=== PATIENT | female | born 1945 | race Caucasian/White ===

== ENCOUNTER 2017-12-08 15:28 | Outpatient (CLI) | payer MEDICARE ==
--- NOTE | 2017-12-08 16:38 | MRI ---
MRI OF BRAIN WITHOUT CONTRAST 12/08/17 HISTORY: Expressive aphasia, migraine. FINDINGS: No restricted diffusion is seen. There are multiple foci of T2 prolongation of the periventricular wh ite matter most likely consistent with chronic small vessel ischemic disease. Other possibility is lo ng term vascular headaches suggests migraine. No evidence of infarct, hemorrhage, midline shift or ab normal extra-axial fluid collections are seen. The ventricular size is appropriate and the basilar ci sterns patent. The visualized paranasal sinuses are well aerated. There is a small amount of fluid in the mastoid air cells. IMPRESSION: No evidence of acute intracranial process. POS: [facility]
== END 2017-12-08 15:29 | disposition home or self-care (01) ==
LOC: TBSIIMAG 15:28
PROVIDERS: ATTEND Family Medicine
DX: R47.01 Aphasia (principal)
CPT/HCPCS: 70551

== ENCOUNTER 2023-01-01 12:08 | Outpatient (CLI) | payer MEDICARE | END 2023-01-01 12:09 | disposition home or self-care (01) | LOC: ULT 12:08 | PROVIDERS: ATTEND Internal Medicine Cardiovascular Disease | DX: I48.92 Unspecified atrial flutter (principal); I08.8 Other rheumatic multiple valve diseases; I51.7 Cardiomegaly | CPT/HCPCS: 93306 ==